=== PATIENT | female | born 1975 ===

== ENCOUNTER 2017-08-21 17:00 | Emergency (ER) | payer OTHER ==
[2017-08-21 17:23] VITALS: BP 114/72; PULSE 66; RESP 16; TEMP 98.1; O2SAT 100
--- NOTE | 2017-08-21 17:38 | C.PDOC ---
History Of Present Illness 42 year old female presents to the ED for evaluation of a nose injury sustained 4 days ago. Patient states she fell onto her nose had some initial bleeding. Patient now states he has some occasional black nasal discharge that improved from prior. Patient c/o persistent pain and swelling. Patient denies no other associated symptoms or injury, headache, visual changes, nausea, vomit. NOSE INJURY 4 DAYS AGO. PS OBJECT FELL ONTO NOSE. INITIAL EPISTAXIS, NOW W OCC BLACK NASAL DC IMPROVED FROM PRIOR. CO PERSIST PAIN, SWELL. NO OTHER ASSOC SX OR INJURY EXAM NAD NONTOXIC HEENT +NASAL B/L SWELL NO GROSS SHIFT; NO EPISTAXIS. NO CONTUSION SKIN INTACT NEURO INTACT REMAINDER NEG Time Seen by Provider: 08/21/17 17:27 Chief Complaint (Nursing): ENT Problem History Per: Patient History/Exam Limitations: no limitations Injury Occurred (Timing): Days Ago: (4) Onset/Duration Of Symptoms: Days (4) Patient States: Fell Striking Head (nose first) Loss Of Consciousness: No Recent travel outside of the [place]: No Additional History Per: Patient Past Medical History Reviewed: Historical Data, Nursing Documentation, Vital Signs Vital Signs: Last Vital Signs Temp 98.1 F 08/21/17 17:18 Pulse 66 08/21/17 17:18 Resp 16 08/21/17 17:18 BP 114/72 08/21/17 17:18 Pulse Ox 100 08/21/17 18:18 - Medical History PMH: No Chronic Diseases Surgical History: No Surg Hx Family History: States: Unknown Family Hx - Social History Hx Alcohol Use: No Hx Substance Use: No - Immunization History Hx Tetanus Toxoid Vaccination: Yes Hx Influenza Vaccination: No Hx Pneumococcal Vaccination: No Review Of Systems Constitutional: Negative for: Fever, Chills Eyes: Negative for: Vision Change ENT: Positive for: Nose Pain, Nose Discharge Cardiovascular: Negative for: Palpitations Respiratory: Negative for: Cough, Shortness of Breath Gastrointestinal: Negative for: Nausea, Vomiting Musculoskeletal: Negative for: Neck Pain Skin: Negative for: Rash Neurological: Negative for: Headache, Dizziness Physical Exam - Physical Exam Appears: Non-toxic, No Acute Distress Skin: Normal Color, Warm, Dry Head: Atraumatic, Normacephalic Eye(s): bilateral: Normal Inspection, PERRL, EOMI Ear(s): Bilateral: Normal Nose: No Discharge, No Epistaxis, Other (B/L swelling. no gross shift. no contusion) Oral Mucosa: Moist Throat: Normal, No Erythema, No Exudate Neck: Normal ROM, No Midline Cervical Tenderness, Supple Chest: Symmetrical Cardiovascular: Rhythm Regular, No Murmur Respiratory: Normal Breath Sounds, No Rales, No Rhonchi, No Wheezing Extremity: Normal ROM, No Tenderness, No Swelling Neurological/Psych: Oriented x3, Normal Speech, Normal Cognition, Normal Motor, Normal Sensation Gait: Steady ED Course And Treatment O2 Sat by Pulse Oximetry: 100 (ON RA) Pulse Ox Interpretation: Normal - Other Rad NOSE X-Ray: Interpreted by Me (NEG) Medical Decision Making Medical Decision Making: Plan: * Motrin 600 mg PO * Tylenol 650 mg PO * Nasal bones x-ray Disposition Counseled Patient/Family Regarding: Studies Performed, Diagnosis, Need For Followup - Disposition Referrals: [facility] [Outside] [facility] [Outside] Disposition: HOME/ ROUTINE Disposition Time: 18:17 Condition: IMPROVED Additional Instructions: TAKE MOTRIN AND/OR TYLENOL DIRECTED FOR PAIN. AVOID EXCESSIVE FORCE TO AREA. Instructions: Minor Head Injury (DC) Forms: [facility] [employer] (Turkish), Work Excuse Print Language: AZERI - Clinical Impression Clinical Impression: Nasal contusion - Scribe Statement The provider has reviewed the documentation as recorded by the Scribe Jacob Tinajero All medical record entries made by the Scribe were at my direction and personally dictated by me. I have reviewed the chart and agree that the record accurately reflects my personal performance of the history, physical exam, medical decision making, and the department course for this patient. I have also personally directed, reviewed, and agree with the discharge instructions and disposition.
--- NOTE | 2017-08-21 18:19 | RAD ---
PROCEDURE: Radiographs of Nasal Bones HISTORY: TRAUMA COMPARISON: None available. TECHNIQUE: Frontal and lateral radiographs of the nasal bones. FINDINGS: No acute fracture of nasal bones visualized. No destructive lesion. The soft tissues are normal. IMPRESSION: No acute fracture.
== END 2017-08-21 18:36 | disposition home or self-care (01) ==
LOC: C.ER 17:00
DX: S00.33XA Contusion of nose, initial encounter (principal); W19.XXXA Unspecified fall, initial encounter

== ENCOUNTER 2017-10-23 16:44 | Emergency (ER) | payer OTHER ==
[2017-10-23] MEDS ORDERED: Sodium Chloride 0.9% 1,000 ML IV ONE (17:21)
--- NOTE | 2017-10-23 17:23 | C.PDOC ---
History Of Present Illness 41 y/o female with history of hysterectomy presents to ED with c/o chest pain 6/ 10, palpitations and headache since yesterday associated with dizziness, nausea and generalized weakness. Patient reports heat flashes intermittently for 2 months and states she was at work today and symptoms worsened, went home and showered but symptoms did not improve. Patient admits to difficulty breathing and denies fever, chills, vomiting, loc or any other complaints at this time. Time Seen by Provider: 10/23/17 17:05 Chief Complaint (Nursing): Chest Pain History Per: Patient History/Exam Limitations: no limitations Onset/Duration Of Symptoms: Days Current Symptoms Are (Timing): Still Present Quality: "Pain" Past Medical History Reviewed: Historical Data, Nursing Documentation, Vital Signs Vital Signs: Last Vital Signs Temp 98.1 F 10/23/17 16:56 Pulse 64 10/23/17 17:24 Resp 16 10/23/17 17:24 BP 118/70 10/23/17 17:24 Pulse Ox 98 10/23/17 18:35 - Medical History PMH: No Chronic Diseases Other Surgeries: hysterectomy Family History: States: No Known Family Hx - Social History Hx Alcohol Use: No Hx Substance Use: No - Immunization History Hx Tetanus Toxoid Vaccination: Yes Hx Influenza Vaccination: No Hx Pneumococcal Vaccination: No Review Of Systems Constitutional: Negative for: Fever, Chills Cardiovascular: Positive for: Chest Pain, Palpitations Gastrointestinal: Positive for: Nausea. Negative for: Vomiting, Abdominal Pain Skin: Negative for: Rash Neurological: Positive for: Weakness, Headache, Dizziness. Negative for: Numbness Physical Exam - Physical Exam Appears: Non-toxic, No Acute Distress Skin: Warm, Dry, No Rash Head: Atraumatic, Normacephalic Eye(s): bilateral: Normal Inspection Oral Mucosa: Moist Neck: Normal ROM, Supple Chest: Tenderness (reproducible left sided chest wall) Cardiovascular: Rhythm Regular Respiratory: Normal Breath Sounds, No Rales, No Rhonchi, No Wheezing Gastrointestinal/Abdominal: Soft, No Tenderness, No Guarding, No Rebound Back: No CVA Tenderness, No Paraspinal Tenderness Neurological/Psych: Oriented x3, Normal Speech, Normal Cognition ED Course And Treatment - Laboratory Results Result Diagrams: 10/23/17 17:49 10/23/17 17:49 ECG: Interpreted By Me, Viewed By Me ECG Rhythm: Sinus Rhythm Rate From EC (bpm) O2 Sat by Pulse Oximetry: 98 (RA) Pulse Ox Interpretation: Normal Medical Decision Making Medical Decision Making: Progress: TSH ordered, will be resolved tomorrow Patient discharge and will be followed up with tomorrow. Disposition Counseled Patient/Family Regarding: Studies Performed - Disposition Referrals: [facility] [Outside] Disposition: HOME/ ROUTINE Disposition Time: 18:31 Condition: STABLE Additional Instructions: Zabrina Whitaker [phone] para los resultados del TSH. Forms: [employer] (Libyan), Gen Discharge Inst Libyan - Clinical Impression Clinical Impression: Palpitations - Scribe Statement The provider has reviewed the documentation as recorded by the Scribe Clarence Chavez All medical record entries made by the Scribe were at my direction and personally dictated by me. I have reviewed the chart and agree that the record accurately reflects my personal performance of the history, physical exam, medical decision making, and the department course for this patient. I have also personally directed, reviewed, and agree with the discharge instructions and disposition.
[2017-10-23] MEDS ORDERED: Sodium Chloride 0.9% 1,000 ML ONE (17:33)
[2017-10-23 18:03] LABS: BASO # 0.1 K/uL (0.0-0.2); BASO % 0.7 % (0.0-2.0); EOS # 0.3 K/uL (0.0-0.7); EOS % 2.9 % (0.0-4.0); HEMOGLOBIN 12.7 g/dL (11.0-16.0); LYMPH # 3.3 K/uL (1.0-4.3); LYMPH % 32.7 % (20.0-40.0); MEAN CELL VOLUME 90.8 fL (81.0-99.0); MEAN CORPUSCULAR HEMOGLOBIN 32.3 pg (27.0-31.0); MEAN CORPUSCULAR HGB CONC 35.5 g/dL (33.0-37.0); MONO # 0.6 K/uL (0.0-0.8); MONO % 5.6 % (0.0-10.0); NEUT # 5.9 K/uL (1.8-7.0); NEUT % 58.1 % (50.0-75.0); NRBC % 0.1 % (0.0-2.0); RBC 3.93 Mil/uL (3.80-5.20); RED CELL DISTRIBUTION WIDTH 13.3 % (11.5-14.5); WHITE BLOOD COUNT 10.2 K/uL (4.8-10.8)
[2017-10-23 18:08] LABS: BLOOD UREA NITROGEN 16 mg/dL (7-17); CALCIUM 9.2 mg/dl (8.6-10.4); GFR AFRICAN-AMERICAN > 60; GFR NON-AFRICAN AMERICAN > 60
[2017-10-23 18:57] VITALS: BP 102/66; PULSE 70; RESP 18; TEMP 97.8; O2SAT 100
--- NOTE | 2017-10-26 21:55 | CARD ---
APPROVED REPORT EKG Measurement Heart [id number] MD [id number] <Conclusion> Normal sinus rhythm with sinus arrhythmia Normal ECG
== END 2017-10-23 18:59 | disposition home or self-care (01) ==
LOC: C.ER 16:44
DX: R00.2 Palpitations (principal)
CPT/HCPCS: 80048; 84443; 85025; 93005; 96360; 99285; J7030

== ENCOUNTER 2017-11-29 16:08 | Emergency (ER) | payer OTHER ==
[2017-11-29 16:17] VITALS: BP 112/68; PULSE 78; RESP 18; TEMP 98.1; O2SAT 99
--- NOTE | 2017-11-29 16:25 | C.PDOC ---
History Of Present Illness Patient is a 42 yr old female who is c/o right ear pain x 9 days. No fever. Advil does help a little bit. No other complaints at this time. PMD: None / Time Seen by Provider: 11/29/17 16:16 Chief Complaint (Nursing): ENT Problem History Per: Patient History/Exam Limitations: None Onset/Duration Of Symptoms: Days Past Medical History Reviewed: Historical Data, Nursing Documentation, Vital Signs Vital Signs: Last Vital Signs Temp 98.1 F 11/29/17 16:16 Pulse 78 11/29/17 16:16 Resp 18 11/29/17 16:16 BP 112/68 11/29/17 16:16 Pulse Ox 99 11/29/17 16:30 - Medical History PMH: No Chronic Diseases Family History: States: Diabetes - Social History Hx Tobacco Use: No Hx Alcohol Use: No Hx Substance Use: No - Immunization History Hx Tetanus Toxoid Vaccination: Yes Hx Influenza Vaccination: No Hx Pneumococcal Vaccination: No Review Of Systems Except As Marked, All Systems Reviewed And Found Negative. Constitutional: Negative for: Fever ENT: Positive for: Ear Pain. Negative for: Throat Pain Physical Exam - Physical Exam Appears: Well, Non-toxic, No Acute Distress Skin: Normal Color, Warm, Dry Head: Atraumatic Eye(s): bilateral: Normal Inspection, EOMI Ear(s): Left: Normal, Right: TM Erythema, Loss Of TM Landmarks Nose: Normal Tongue: Normal Appearing Lips: Normal Appearing Teeth: Normal Dentition Neck: Normal Chest: Symmetrical Cardiovascular: Rhythm Regular Respiratory: Normal Breath Sounds, No Rales, No Rhonchi, No Wheezing ED Course And Treatment O2 Sat by Pulse Oximetry: 99 Medical Decision Making Medical Decision Making: Initial Impression: Right Otitis Media Initial Plan: Will d/c on abx / Disposition Counseled Patient/Family Regarding: Diagnosis, Need For Followup, Rx Given - Disposition Referrals: [facility] [Outside] Disposition: HOME/ ROUTINE Disposition Time: 16:22 Condition: STABLE Additional Instructions: Ms. Carias, thank you for letting us take care of you today. Return to the ER if your symptoms worsen, or if any problems. Take the medication listed below. Call the phone number listed below to make an appointment at our [facility]. Prescriptions: Amoxicillin 1 tab PO TID #21 tablet Ibuprofen [Motrin] 1 tab PO TID PRN #30 tab PRN Reason: Pain Instructions: Ear Infections (Otitis Media) Print Language: [place] CITIZEN - POA Present On Arrival: None - Clinical Impression Clinical Impression: Otitis media of right ear
== END 2017-11-29 16:32 | disposition home or self-care (01) ==
LOC: C.ER 16:08
DX: H66.91 Otitis media, unspecified, right ear (principal)